=== PATIENT | male | born 1945 | race Caucasian/White ===

== ENCOUNTER 2024-09-02 09:04 | Outpatient (CLI) | payer OTHER, SELFPAY ==
--- NOTE | 2024-09-02 09:00 | RT.EKG_ITS ---
APPROVED REPORT Exam: Resting ECG Reason for Exam: pre-op prior to laminectomy Patient Location: O HR:59 bpm ECG Measurements Heart Rate 59 AXIS OR 190 P 34 QRSd 124 QRS -30 QT 399 T 15 QTc 396 Conclusion Sinus rhythm...normal P axis, V-rate 50- 99 Probable left atrial enlargement...P >50mS, <-0.10mV V1 IVCD, consider atypical RBBB...QRSd>120mS, terminal axis(90,270)
== END 2024-09-02 09:05 | disposition home or self-care (01) ==
LOC: DI.KIM 09:04
PROVIDERS: PCP Family Medicine; Visit Provider Nurse Practitioner
DX: Z01.818 Encounter for other preprocedural examination (principal)
CPT/HCPCS: 93010

== ENCOUNTER 2024-09-02 13:55 | Outpatient (CLI) | payer MEDICARE, SELFPAY ==
[2024-09-02 10:58] LABS: HCT 45.5 % (40.0-50.0); HGB 15.4 g/dL (13.5-17.5); MCH 30.3 pg (27.0-33.0); MCHC 33.8 % (32.0-36.0); MCV 90 fL (80-95); MPV 9.5 fL (8.0-11.0); Platelet Count 202 10^3/uL (130-400); RBC 5.08 10^6/uL (4.36-5.78); RDW 13.2 % (11.8-14.1); RDW-SD 43.2 fL; WBC 7.78 10^3/uL (4.4-10.8)
[2024-09-02 11:10] LABS: Anion Gap 7.4 mmol/L (3-11); BUN 16 mg/dL (7-18); CO2 28.6 mmol/L (21.0-32.0); CREATININE 0.9 mg/dL (0.70-1.30); Calcium 9.5 mg/dL (8.5-10.1); Chloride 103 mmol/L (98-107); Estimated GFR 86.88 (mL/min/1.73m2); Glucose 108 mg/dL (74-106); Sodium 139 mmol/L (136-145)
[2024-09-02 11:13] LABS: PTT Activated 25.7 sec (23.6-32.8); Prothrombin Time 10.4 sec (9.1-11.1)
== END 2024-09-02 13:56 | disposition home or self-care (01) ==
LOC: LBO 13:57
PROVIDERS: PCP Family Medicine; Visit Provider Nurse Practitioner
DX: Z01.818 Encounter for other preprocedural examination (principal); M48.062 Spinal stenosis, lumbar region with neurogenic claudication; I65.29 Occlusion and stenosis of unspecified carotid artery
CPT/HCPCS: 36415; 80048; 85027; 85610; 85730

== ENCOUNTER 2025-01-05 00:40 | Outpatient (CLI) | payer MEDICARE, SELFPAY ==
[2025-01-05 07:48] LABS: INR 1.1 (0.9-1.1); Prothrombin Time 10.6 sec (9.1-11.1)
[2025-01-05 08:23] LABS: ALT 39 U/L (16-63); AST 23 U/L (15-37); Albumin 4.3 g/dL (3.4-5.0); Alkaline Phosphatase 98 U/L (46-116); Bilirubin, Total 0.7 mg/dL (0.2-1.0); Calculated LDL 64 mg/dL (<100); Cholesterol 167 mg/dL (<200); HDL Cholesterol 98 mg/dL (>or=40); Total Protein 8.5 g/dL (6.4-8.2); Triglyceride 28 mg/dL (<150); Vitamin D 25 Total 69 ng/mL (30-100)
[2025-01-05 08:34] LABS: Bilirubin, Direct 0.2 mg/dL (0.0-0.2)
== END 2025-01-05 00:41 | disposition home or self-care (01) ==
LOC: LBO 00:40
PROVIDERS: PCP Nurse Practitioner Family; Visit Provider Nurse Practitioner Family
DX: R79.89 Other specified abnormal findings of blood chemistry (principal); Z79.52 Long term (current) use of systemic steroids; K76.89 Other specified diseases of liver
CPT/HCPCS: 36415; 80061; 80076; 82306; 85610

== ENCOUNTER 2025-01-19 02:50 | Outpatient (CLI) | payer MEDICARE, SELFPAY ==
--- NOTE | 2025-01-19 07:45 | DI.DEXA_ITS ---
Exam(s) XR DEXA BONE DENSITY W/WO JEANINE EXAM: XR DEXA BONE DENSITY W/WO JEANINE CLINICAL HISTORY: ? osteoporosis,C[employer] STEROID USE,Z79.52 TECHNIQUE: COMPARISON: No exams were available for comparison FINDINGS: Lateral Spine Image: Unremarkable. No compression deformities identified. Left hip: Total T-Score: 0.0 Total Z-Score: 1.1 T- and Z-scores: Within normal limits. Lumbar Spine: Total T-Score: 3.8 Total Z-Score: 5.0 T- and Z-scores: Within normal limits. IMPRESSION: No evidence of osteoporosis.
== END 2025-01-19 03:10 ==
LOC: DI 02:50
PROVIDERS: PCP Nurse Practitioner Family; Visit Provider Nurse Practitioner Family
DX: Z79.52 Long term (current) use of systemic steroids (principal); R79.89 Other specified abnormal findings of blood chemistry
CPT/HCPCS: 77080

== ENCOUNTER 2025-01-23 01:35 | Outpatient (CLI) | payer MEDICARE, SELFPAY ==
[2025-01-23 11:34] LABS: Hemoglobin A1C 5.6 % (<5.7)
[2025-01-26 13:00] LABS: Lyme Ab w Rflx to Lyme Confirm Negative (Negative)
[2025-01-27 02:21] LABS: Anaplasma phagocytophilum Negative (Negative); B. miyamotoi PCR Negative (Negative); Babesia divergens/MO-1 Negative (Negative); Babesia duncani Negative (Negative); Babesia microti Negative (Negative); Ehrlichia chaffeensis Negative (Negative); Ehrlichia ewingii/canis Negative (Negative); Ehrlichia muris eauclairensis Negative (Negative)
== END 2025-01-23 01:36 | disposition home or self-care (01) ==
PROVIDERS: PCP Nurse Practitioner Family; Referring Provider Nurse Practitioner Family; Visit Provider Nurse Practitioner Family
DX: S30.861A Insect bite (nonvenomous) of abdominal wall, initial encounter (principal); W57.XXXA Bitten or stung by nonvenomous insect and other nonvenomous arthropods, initial encounter; R73.09 Other abnormal glucose
CPT/HCPCS: 36415; 87798; 83036; 86618

== ENCOUNTER 2025-03-05 13:42 | Outpatient (CLI) | payer MEDICARE, SELFPAY ==
--- NOTE | 2025-03-05 13:55 | DI.RAD_ITS ---
Exam(s) XR KNEE RT 3V AP,LAT,BRENDA EXAM: XR KNEE RT 3V AP,LAT,BRENDA CLINICAL HISTORY: pain swelling due to trauma. TECHNIQUE: 2D digital imaging was performed. Three views. COMPARISON: No exams were available for comparison FINDINGS: BONES: No acute fracture is present. No bony destructive lesion is seen. JOINTS: Severe narrowing of the patellofemoral joint and periarticular spurring. The femoral tibial joint spaces are maintained. A small joint effusion is seen. There is faint chondrocalcinosis. SOFT TISSUE: Normal. 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 DATA REPOSITORY: RADIATION DOSE DELIVERED:
== END 2025-03-05 14:02 ==
PROVIDERS: PCP Nurse Practitioner Family; Visit Provider Family Medicine
DX: M17.11 Unilateral primary osteoarthritis, right knee (principal)
CPT/HCPCS: 73562